=== PATIENT | female | born 1970 | race Caucasian/White ===

== ENCOUNTER → 2021-01-13 | Outpatient (CLI) | payer OTHER | LOC: ULTRA 08:36 → CAT 10:27 → ULTRA 11:52 → CAT 13:14 | PROVIDERS: ATTEND Nurse Practitioner | DX: E04.2 Nontoxic multinodular goiter (principal); K76.0 Fatty (change of) liver, not elsewhere classified; K42.0 Umbilical hernia with obstruction, without gangrene; R06.02 Shortness of breath; J45.41 Moderate persistent asthma with (acute) exacerbation; R10.10 Upper abdominal pain, unspecified ==

== ENCOUNTER → 2021-01-25 | Outpatient (CLI) | payer OTHER | LOC: SJCVCIMAG 07:39 | PROVIDERS: ATTEND Internal Medicine | DX: R00.0 Tachycardia, unspecified (principal); R06.00 Dyspnea, unspecified; E11.9 Type 2 diabetes mellitus without complications; I10 Essential (primary) hypertension; E66.9 Obesity, unspecified; E78.5 Hyperlipidemia, unspecified; Z79.899 Other long term (current) drug therapy; R51.9 Headache, unspecified ==

== ENCOUNTER → 2021-02-08 | Outpatient (CLI) | payer OTHER ==
[~2021-02-08] VITALS: Ht 144.8 cm; Wt 146.5 kg
[~2021-02-08] MED LIST: AMLODIPINE-BEN1 EAC2 PO; CARAFATE1 GM PO; GLUMETZA500 PO; NEXIUM 40 MG CA40 M1 PO; PROAIR HFA8.5 GM INH; ROPINIROLE HCL4 M1 PO; SINGULAIR 10 MG10 M1 PO; TOPROL XL25 MG PO; TRELEGY ELLIPT1 EACH INH
--- NOTE | 2021-02-13 17:06 | PATH ---
[facility] [place] [address] PATHOLOGY RPT PROCEDURE Name: FRANNY ALBARRAN Room #: REG CARLITA M.R.#: [id number] Admission: 02/08/21 Date of : 70 Discharge: Report #: [id number] Path Case #: [id number] [facility] Accession Number: [id number] . 01 Material submitted: . PART A: duodenum - DOUDENUM BIOPSY R/O SPRUE PART B: gastrointestinal site - GASTRIC BX R/O H-PYLORI PART C: colon - TRANSVERSE COLON POLYP. Modifiers: transverse PART D: sigmoid colon - SIGMOID COLON POLYP . 01 Clinical history: . EGD COLONOSCOPY ABD PAIN . 02 Diagnosis: A. Small bowel mucosa, duodenum to rule out sprue, endoscopic biopsy: - No diagnostic abnormalities present. - Negative for villous blunting or increase in intraepithelial lymphocytes. . B. Gastric mucosa, gastric to rule out H. pylori, endoscopic biopsy: - Mild reactive gastropathy. - Negative for intestinal metaplasia or atrophy. - Negative for Helicobacter pylori (properly controlled immunohistochemical stain performed). . C. Polyp, transverse colon polyp, endoscopic biopsy: - Tubular adenoma. - Negative for high-grade dysplasia. . D. Polyp, sigmoid colon polyp, endoscopic biopsy: - Hyperplastic polyp. - Negative for dysplasia. . (IUV:process expert; 02/13/2021) MBR 02/13/2021 1211 Local . 02 Electronically signed: . Niecy Tiwari MD, Pathologist NPI- [id number] . 01 Gross description: . A. Received in formalin labeled "Albarran, Franny, duodenal BX rule out sprue" are multiple hurtado-brown soft tissue fragments measuring in aggregate 0.8 x 0.5 x 0.1 cm. The specimen is submitted entirely in A1. . [address] [address] PATHOLOGY RPT PROCEDURE Name: WINDY ALBARRANMY GEORGI Room #: REG CLI Gee.#: [id number] Admission: 02/08/21 Date of : 70 Discharge: Report #: [id number] Path Case #: [id number] B. Received in formalin labeled "Albarran, Franny, gastric BX rule out H. pylori" are multiple hurtado-brown soft tissue fragments measuring in aggregate 0.8 x 0.6 x 0.1 cm. The specimen is submitted entirely in B1. . C. Received in formalin labeled "Albarran, Franny, transverse colon polyp" are 2 hurtado-brown soft tissue fragments measuring in aggregate 0.4 x 0.3 x 0.1 cm. The specimen is submitted entirely in C1. . D. Received in formalin labeled "Albarran, Franny, sigmoid colon polyp" is a hurtado-brown nodular mucosal polyp measuring 0.8 x 0.5 x 0.5 cm. The margin is inked and the specimen is bisected. The specimen is submitted entirely in D1. ([facility]; 02/11/2021) [facility] 02/11/2021 0806 Local . 02 Pathologist provided ICD-10: K31.9, D12.3, K63.5, R10.9 . 02 CPT . 325842, 206476, 230204, 087831, [id number] Specimen Comment: A courtesy copy of this report has been sent to [phone] Specimen Comment: [id number] Specimen Comment: Report sent to / DR VELARDE Performed at: [address], [place] [id number] MD Corey Austin MD Phone: [phone] Performed at: [address] [id number] MD Niecy Tiwari MD Phone: [phone]
--- NOTE | 2021-02-15 08:07 | P ---
[facility] [place] [address] PROCEDURE REPORT Name: LILIANA INTERIANO Room #: REG CARLITA Flynn.#: [id number] Admission: 02/08/21 Attend Phys: Rodney Spann Discharge: Date of : 70 Report #: [id number] THIS REPORT FOR: cc: Richardson Lucas MD, Neal A. MD McElhinney, Christian C. MD ~ DOC #: [id number] cc: MD Rodney Gallegos MD DATE OF SERVICE: 02/08/2021 PROCEDURE PERFORMED: Upper endoscopy with biopsies. HISTORY OF PRESENT ILLNESS: The patient is a 50-year-old female with a history of gastroesophageal reflux disease, underwent a Tarsha fundoplication for reflux control approximately 16 years ago, began having increased symptoms of midepigastric abdominal pain, which is fairly constant as well as heartburn. She denies any significant dysphagia. She started taking Nexium approximately 2 months ago with some improvement in her symptoms, still has some abdominal pain. Also started Carafate about a month ago. Plan is for EGD and colonoscopy today. DESCRIPTION OF PROCEDURE: The risks and benefits of the procedure were explained to the patient, those risks including but not limited to bleeding, perforation and the risk of sedation. She understood these risks and gave informed consent. Sedation was given using propofol per anesthesia. Next, using a standard Olympus upper endoscope, the scope was placed in the patient's mouth and advanced under direct vision through the esophagus, stomach and into the second portion of the duodenum. The larynx was normal in appearance. The esophagus was normal throughout. The GE junction was normal. In the stomach, on retroflexion, changes of fundoplication were noted. Possible mild relaxation. No evidence of hiatal hernia. Overall, the gastric mucosa was normal. The biopsies were obtained to rule out H. pylori. The pylorus was normal and patent. The duodenal bulb, first and second portion were also normal. Biopsies were obtained to rule out celiac sprue. The scope was then withdrawn, and the procedure terminated. The patient tolerated the procedure well. IMPRESSION: 1. Changes of Tarsha fundoplication noted. 2. Otherwise, normal upper endoscopy. RECOMMENDATIONS: 1. Await biopsy results. 2. Continue Nexium and Carafate at this time. We will consider adding Levsin [address] [address] PROCEDURE REPORT Name: LILIANA INTERIANO Room #: REG DAVIDVandana Zavala#: [id number] Admission: 02/08/21 Attend Phys: Rodney Spann Discharge: Date of : 70 Report #: [id number] for her abdominal pain. The patient has had a previous cholecystectomy. Plan is for colonoscopy next today as well. Thank you for allowing me to participate in her care. Rodney Mina MD CCM/NIT <ELECTRONICALLY SIGNED> By: Rodney Mina MD 02/15/21806 0 16 Rodney Mnia MD /nt
--- NOTE | 2021-02-15 08:07 | P ---
[facility] [place] [address] [place] [address] PROCEDURE REPORT Name: LILIANA INTERIANO Room #: REG [facility] Gee.#: [id number] Admission: 02/08/21 Attend Phys: Rodney Spann Discharge: Date of : 70 Report #: [id number] THIS REPORT FOR: cc: Richardson Lucas MD, Neal A. MD McElhinney, Christian C. MD ~ DOC #: [id number] cc: MD Rodney Gallegos MD DATE OF SERVICE: 02/08/2021 PROCEDURE PERFORMED: Colonoscopy with polypectomies. HISTORY OF PRESENT ILLNESS: The patient is a 50-year-old female who presents today for routine screening colonoscopy. No previous history of colonoscopy. Bowel movements have been normal. No family history of colon cancer. DESCRIPTION OF PROCEDURE: The risks and benefits of the procedure were explained to the patient, those risks including but not limited to bleeding, perforation and the risk of sedation. She understood these risks and gave informed consent. Sedation was given using propofol per anesthesia. Next, a digital rectal exam showed external hemorrhoids, otherwise normal. Next, using a standard Olympus colonoscope, the scope was placed in the patient's anus and advanced under direct vision to the cecum. The overall prep was excellent. The cecum and ileocecal valve were normal in appearance. In the ascending colon, a 4 mm sessile polyp was noted. This was removed with cold forceps, otherwise normal. The transverse and descending colon were normal. In the sigmoid colon, a 6 mm sessile polyp was noted. This was removed by snare cautery, otherwise normal. The rectal mucosa was normal. On retroflexion, no abnormalities were noted. The scope was then withdrawn and the procedure terminated. The patient tolerated the procedure well. IMPRESSION: 1. Two small colonic polyps. 2. External hemorrhoids. 3. Otherwise, normal colonoscopy. RECOMMENDATIONS: 1. Await biopsy results. 2. If polyps are hyperplastic, repeat in 10 years; if adenomatous polyp, repeat in 5 years. Thank you for allowing me to participate in her care. Rodney Mina MD [address] [address] PROCEDURE REPORT Name: ILLIANA INTERIANO Room #: REG [facility]#: [id number] Admission: 02/08/21 Attend Phys: Rodney Spann Discharge: Date of : 70 Report #: [id number] [facility] <ELECTRONICALLY SIGNED> By: Rodney Mina MD 02/15/21 0807 0846 22 Rodney Mina MD /nt
== END | disposition home or self-care (01) ==
LOC: GI 07:09
PROVIDERS: ATTEND Specialist
DX: Z12.11 Encounter for screening for malignant neoplasm of colon (principal); R10.13 Epigastric pain; D12.3 Benign neoplasm of transverse colon; K64.4 Residual hemorrhoidal skin tags; K21.9 Gastro-esophageal reflux disease without esophagitis; K31.9 Disease of stomach and duodenum, unspecified; I10 Essential (primary) hypertension; E11.9 Type 2 diabetes mellitus without complications; E78.5 Hyperlipidemia, unspecified; J45.909 Unspecified asthma, uncomplicated; G47.30 Sleep apnea, unspecified; Z98.890 Other specified postprocedural states; Z79.899 Other long term (current) drug therapy; Z90.49 Acquired absence of other specified parts of digestive tract
CPT/HCPCS: 62110; 62900